=== PATIENT | male | born 1955 | race Caucasian/White ===

== ENCOUNTER → 2020-02-03 14:00 | Outpatient (BNVA) | payer SELFPAY | PROVIDERS: Visit Provider Dermatology | DX: L72.9 Follicular cyst of the skin and subcutaneous tissue, unspecified (principal); D23.30 Other benign neoplasm of skin of unspecified part of face; L82.1 Other seborrheic keratosis; D22.9 Melanocytic nevi, unspecified; Q68.1 Congenital deformity of finger(s) and hand | CPT/HCPCS: 99202 ==